=== PATIENT | male | born 1980 | race Caucasian/White ===

== ENCOUNTER 2018-10-10 21:40 | Emergency (ER) | payer BC ==
[2018-10-10 21:50] VITALS: BP 142/99
[2018-10-10] MEDS ORDERED: Amoxicillin PO (*) 500 MG CAP PO ONE (22:09)
--- NOTE | 2018-10-10 22:10 | UC ---
Throat Pain/Nasal Benji HPI - HPI Summary HPI Summary: Patient is a 38-year-old male that is been ill for about 3 weeks. States his symptoms initially started out as a typical cold for the past week he has had severe postnasal drip and started nasal congestion. Has had sinus surgery in the past. He denies any fever or chills. He denies any chest pain or shortness of breath. - History of Current Complaint Chief Complaint: UCRespiratory Stated Complaint: SINUS COMPLAINT Time Seen by Provider: 10/10/18 22:03 Hx Obtained From: Patient Onset/Duration: Gradual Onset, Lasting Weeks - 3 Severity: Moderate Pain Intensity: 0 Pain Scale Used: 0-10 Numeric Cough: Nonproductive Associated Signs & Symptoms: Positive: Sinus Discomfort, Nasal Discharge - Allergies/Home Medications Allergies/Adverse Reactions: Allergies Allergy/AdvReac Type Severity Reaction Status Date / Time No Known Allergies Allergy Verified 10/10/18 21:50 Home Medications: Home Medications Fexofenadine/Pseudoephedrine [Charisse-D 24 Hour Tablet] 1 mg PO DAILY 10/10/18 [ History Confirmed 10/10/18] Levothyroxine TAB* [Synthroid TAB*] 75 mcg PO 0800 10/10/18 [History Confirmed 10/10/18] PMH/Surg Hx/FS Hx/Imm Hx Previously Healthy: Yes Other History Of: Negative For: HIV, Hepatitis B, Hepatitis C, Anticoagulant Therapy - Surgical History Surgical History: Yes Surgery Procedure, Year, and Place: 2002 WISDOM TEETH OFC, NOSE SURGERY - Family History Known Family History: Negative: Cardiac Disease, Hypertension, Diabetes - Social History Alcohol Use: Rare Substance Use Type: None Smoking Status (MU): Never Smoked Tobacco Review of Systems All Other Systems Reviewed And Are Negative: Yes Constitutional: Positive: Negative Skin: Positive: Negative Eyes: Positive: Negative ENT: Positive: Nasal Discharge, Sinus Congestion Respiratory: Positive: Cough Cardiovascular: Positive: Negative Gastrointestinal: Positive: Negative Genitourinary: Positive: Negative Motor: Positive: Negative Neurovascular: Positive: Negative Musculoskeletal: Positive: Negative Neurological: Positive: Negative Psychological: Positive: Negative Physical Exam Triage Information Reviewed: Yes Appearance: Well-Appearing, No Pain Distress, Well-Nourished Vital Signs: Initial Vital Signs Temp 99.0 F 10/10/18 21:46 Pulse 83 10/10/18 21:46 Resp 18 10/10/18 21:46 BP 142/99 10/10/18 21:46 Pulse Ox 99 10/10/18 21:46 Eyes: Positive: Conjunctiva Clear ENT: Positive: Hearing grossly normal, Pharynx normal, Nasal congestion, Nasal drainage, Sinus tenderness. Negative: Tonsillar swelling, Tonsillar exudate, Trismus, Muffled voice, Hoarse voice Neck: Positive: Supple, Nontender, No Lymphadenopathy Respiratory: Positive: Lungs clear, Normal breath sounds, No respiratory distress, No accessory muscle use Cardiovascular: Positive: RRR, No Murmur Musculoskeletal: Positive: ROM Intact, No Edema Neurological: Positive: Alert Psychological Exam: Normal Skin Exam: Normal Throat Pain/Nasal Course/Dx - Differential Dx/Diagnosis Provider Diagnosis: Acute sinusitis, Elevated blood pressure reading in office without diagnosis of hypertension Discharge - Sign-Out/Discharge Documenting (check all that apply): Patient Departure All imaging exams completed and their final reports reviewed: No Studies - Discharge Plan Condition: Stable Disposition: HOME Prescriptions: Amoxicillin PO (*) [Amoxicillin 875 MG (*)] 875 mg PO BID #20 tab Patient Education Materials: Sinusitis (ED) Referrals: Trino Faulkner MD [Primary Care Provider] - 2 Weeks (RECHECK BP) - Billing Disposition and Condition Condition: STABLE Disposition: Home
== END 2018-10-10 22:15 | disposition home or self-care (01) ==
LOC: UCEAST 21:40
DX: J01.90 Acute sinusitis, unspecified (principal); R03.0 Elevated blood-pressure reading, without diagnosis of hypertension
CPT/HCPCS: 99212; A9270-GY; G0463